=== PATIENT | male | born 1985 | race Caucasian/White ===

== ENCOUNTER 2022-02-25 18:40 | Inpatient (IN) | payer SELFPAY ==
[~2022-02-25] VITALS: Ht 177.8 cm; Wt 73.8 kg
[2022-02-25 19:06] LABS: BASO # 0.1 K/mm3 (0.0-0.2); BASO % 1.1 % (0.0-2.0); EOS % 0.2 % (0.0-4.0); GRAN # 2.8 K/mm3 (1.4-6.5); HEMATOCRIT 40.3 % (42.0-52.0); HEMOGLOBIN 14.3 g/dl (13.5-18.0); LYMPH # 1.4 K/mm3 (1.2-3.4); LYMPH % 30.5 % (20.0-51.0); MEAN CELL VOLUME 91 fl (80.0-100.0); MEAN CORPUSCULAR HEMOGLOBIN 32 pg (27-31); MEAN CORPUSCULAR HGB CONC 36 g/dl (33.0-37.0); MEAN PLATELET VOLUME 10.1 fl (7.4-10.4); MONO # 0.3 K/mm3 (0.1-0.6); MONO % 6.8 % (1.7-9.3); PLATELET COUNT 175 K/mm3 (130-400); RED BLOOD COUNT 4.45 M/mm3 (4.20-5.60); REDCELL DISTRIBUTION WIDTH-CV 13.1 % (11.5-14.5)
[2022-02-25 19:16] LABS: ALANINE AMINOTRANSFERASE 19 U/L (0-55); ALBUMIN 4.3 gm/dL (3.5-5.0); ALCOHOL(ethanol),MEDICAL 293 mg/dL (0-10); ALKALINE PHOSPHATASE 59 U/L (40-150); ANION GAP 28 mmol/L (7-16); AST,SGOT 31 U/L (5-34); BILIRUBIN,TOTAL 0.5 mg/dL (0.2-1.2); BLOOD UREA NITROGEN 11 mg/dL (9-21); CALCIUM 8.7 mg/dL (8.4-10.2); CHLORIDE 104 mmol/L (98-107); LIPASE 14 U/L (8-78); MAGNESIUM 1.9 mg/dL (1.6-2.6); POTASSIUM 3.5 mmol/L (3.5-4.5); SODIUM 143 mmol/L (136-145); TOTAL PROTEIN 7.8 gm/dL (6.2-8.1)
[2022-02-25 19:23] LABS: CARBON DIOXIDE 11 mmol/L (22-29); GLUCOSE 67 mg/dL (70-99)
[2022-02-25 19:24] LABS: TROPONIN-I < 0.010 ng/mL (0.00-0.033)
[2022-02-25 19:36] LABS: ACETONE,SERUM NEGATIVE
[2022-02-25 19:48] LABS: OSMOLALITY-SERUM 366 Osm/kg (275-300)
[2022-02-25 22:46] VITALS: BP 117/77; PULSE 68; TEMP 98.1
[2022-02-25 22:48] LABS: COLLECTION METHOD CLEAN CATCH
[2022-02-25 22:57] LABS: MUCOUS Present (NOT PRESENT); SQUAMOUS EPITHELIAL 0-2 /hpf (0-10); URINE BACTERIA None Seen /hpf (NONE SEEN); URINE RBC 0-2 /hpf (0-2)
[2022-02-25 22:58] LABS: PH 5 (5-8); URINE APPEARANCE Clear (CLEAR/HAZY); URINE BLOOD Negative (NEGATIVE); URINE COLOR Yellow (YELLOW); URINE GLUCOSE Negative (NEGATIVE); URINE KETONE 2+ (NEGATIVE); URINE NITRATE Negative (NEGATIVE); URINE PROTEIN(semi-quant) Negative (NEGATIVE); URINE UROBILINOGEN Negative (NEGATIVE)
[2022-02-25 23:03] LABS: TRICYCLIC ANTIDEPRESS URINE NEGATIVE
[2022-02-25] MEDS ORDERED: SEROQUEL 2525 MG/TAB PO (23:19)
[2022-02-25] MEDS ORDERED: BUSPAR10 MG PO (23:20)
[2022-02-25] MEDS ORDERED: ATARAX50 MG PO (23:21)
[2022-02-25] MEDS ORDERED: BLOOD PRESSURE MED (23:21)
[2022-02-25] MEDS ORDERED: GABAPENTIN (23:22)
[2022-02-25 23:47] VITALS: BP 118/67; PULSE 71; TEMP 97.6
[2022-02-26] VITALS (7 sets, daily range): BP systolic 102–141; BP diastolic 55–94; PULSE 54–91; TEMP 98.1–98.8
--- NOTE | 2022-02-26 01:47 | NUR ---
ARRIVAL TO FLOOR: PATIENT RESTING IN BED WITH COMPLAINTS OF NAUSEA AND REPORTS ANXIETY RETURNING. PATIENT COOPERATIVE WITH ADMISSION. PATIENT GIVEN ORDERED ZOFRAN AND ATIVAN PER CIWA SCALE. PATIENT SEEN BY PA AT BEDSIDE.
--- NOTE | 2022-02-26 06:10 | NUR ---
PATIENT RESTED QUIETLY FOR THE REMAINDER OF SHIFT. PATIENT RECEIEVED NO FURTHER MEDICATIONS.
[2022-02-26 08:45] LABS: BASO % 1.5 % (0.0-2.0); EOS # 0.1 K/mm3 (0.0-0.7); EOS % 1.9 % (0.0-4.0); GRAN # 1.2 K/mm3 (1.4-6.5); GRAN % 44.1 % (42.2-75.2); LYMPH % 39.5 % (20.0-51.0); MEAN CELL VOLUME 91 fl (80.0-100.0); MEAN CORPUSCULAR HGB CONC 35 g/dl (33.0-37.0); MEAN PLATELET VOLUME 10.1 fl (7.4-10.4); MONO # 0.3 K/mm3 (0.1-0.6); MONO % 12.6 % (1.7-9.3); PLATELET COUNT 119 K/mm3 (130-400); RED BLOOD COUNT 3.91 M/mm3 (4.20-5.60)
[2022-02-26 08:47] LABS: HEMATOCRIT 35.5 % (42.0-52.0); HEMOGLOBIN 12.3 g/dl (13.5-18.0); MEAN CORPUSCULAR HEMOGLOBIN 31 pg (27-31)
[2022-02-26 09:01] LABS: CALCIUM 7.9 mg/dL (8.4-10.2); CREATININE, serum 0.71 mg/dL (0.72-1.25); POTASSIUM 4.1 mmol/L (3.5-4.5)
--- NOTE | 2022-02-26 19:52 | NUR ---
BEGINNING OF SHIFT: PATIENT RESTING QUIETLY IN BED. PATIENT C/O HUNGER AND REQUESTS FOOD. PATIENT GIVEN BOXED LUNCH AND DENIES FURTHER NEEDS.
[2022-02-27] VITALS (7 sets, daily range): BP systolic 93–140; BP diastolic 53–614; PULSE 40–68; TEMP 97.4–98.3
--- NOTE | 2022-02-27 06:23 | NUR ---
END OF SHIFT: PATIENT SLEPT MOST OF SHIFT. PATIENT RECEIVED NO PRN MEDICATIONS.
[2022-02-27 06:51] LABS: CALCIUM 8.7 mg/dL (8.4-10.2); CREATININE, serum 0.66 mg/dL (0.72-1.25)
[2022-02-27 06:57] LABS: BASO % 0.9 % (0.0-2.0); EOS # 0.1 K/mm3 (0.0-0.7); EOS % 2.3 % (0.0-4.0); GRAN # 1.6 K/mm3 (1.4-6.5); GRAN % 45.3 % (42.2-75.2); HEMOGLOBIN 12.4 g/dl (13.5-18.0); LYMPH # 1.3 K/mm3 (1.2-3.4); LYMPH % 36.3 % (20.0-51.0); MEAN CELL VOLUME 94 fl (80.0-100.0); MEAN CORPUSCULAR HEMOGLOBIN 32 pg (27-31); MEAN CORPUSCULAR HGB CONC 34 g/dl (33.0-37.0); MEAN PLATELET VOLUME 10.9 fl (7.4-10.4); MONO # 0.5 K/mm3 (0.1-0.6); MONO % 14.9 % (1.7-9.3); PLATELET COUNT 119 K/mm3 (130-400); RED BLOOD COUNT 3.93 M/mm3 (4.20-5.60); REDCELL DISTRIBUTION WIDTH-CV 13.1 % (11.5-14.5)
[2022-02-27 06:59] LABS: HEMATOCRIT 36.8 % (42.0-52.0)
[2022-02-27] MEDS ORDERED: THIAMINE 1100 MG/TAB PO (10:59)
[2022-02-27] MEDS ORDERED: FOLIC ACID 11 MG/TA1 PO (10:59)
[2022-02-27] MEDS ORDERED: LIBRIUM 10M10 MG/CAP PO ×2 (11:03)
[2022-02-27] MEDS ORDERED: SEROQUEL 2525 MG/TAB PO (11:03)
--- NOTE | 2022-02-27 13:34 | NUR ---
Patient was provided with discharge information, all questions answered. Telemetry and IV access were discontinued.
--- NOTE | 2022-02-27 16:19 | NUR ---
Pulverizer Mill Operator met with patient for intake assessment/discharge planning: Patient presents alert and oriented; he is agreeable to speak to this Pulverizer Mill Operator. He is living in a house with a roommate that he has known since childhood, and he is independent in his ADLs and IADLs. He utilizes no DME, including no oxygen. His primary care physician is Dr. Joe Gillis in [place], [place], where he is from. He has continued to see this PCP, but ran out of prescribed mental health medications for anxiety and depression and his physician wants to see him again before refilling. He states his mother three years ago, and since he has been moving around the state. He is currently employed in [employer] and is obtaining BCBS there, but not yet established "It's been so busy there." He has a history of [place] Medicaid and attending [facility] substance use treatment for alcoholism. He felt this was helpful, but he is not seeking alcohol treatment at this time. He wants to re-establish with his PCP and get set up with local mental health; he is willing to consider a therapist as he notes he began to experience personal issues regarding family that exacerbated his recent alcohol use. He states, "I just haven't been taking good care of myself," and he notes he hasn't been eating and his roommate has commented. His stomach has been bothering him and he has no appetite lately. He states he has been depressed for as long as he can remember. "I think alot...I'm a worrier." He admits that he was likely self-medication for mental health with his recent substance use that resulted in this hospitalization. Patient is agreeable to referred appointment to [facility] for mental health intake on 03/17/22 at 09:00, and he accepts handouts with alternative options for mental health and various local substance use disorder treatment services, should he decide to attend. He also accepts a patient financial application. He requests a work note, but otherwise has no other questions or concerns. He plans to return to home today and do laundry and prepare to return to work. Alisson, associate of science in nursing contacts Carley DUNCAN who informed would prepare patient's work note for his discharge. Blaise REDMOND updated. *Discharge plan: to home*
== END 2022-02-27 13:00 | disposition home or self-care (01) | DRG 897 ==
LOC: COL.ER 18:40 → MEDICAL 21:10
PROVIDERS: Emergency Medicine; Physician Assistant; ADMIT Student in an Organized Health Care Education/Training Program
DX: F10.139 Alcohol abuse with withdrawal, unspecified (principal); E87.2 Acidosis; K27.9 Peptic ulcer, site unspecified, unspecified as acute or chronic, without hemorrhage or perforation; F41.9 Anxiety disorder, unspecified; Z20.822 Contact with and (suspected) exposure to COVID-19; E16.2 Hypoglycemia, unspecified; F32.A Depression, unspecified; Y90.8 Blood alcohol level of 240 mg/100 ml or more; F12.90 Cannabis use, unspecified, uncomplicated; H53.8 Other visual disturbances; R10.9 Unspecified abdominal pain; G40.909 Epilepsy, unspecified, not intractable, without status epilepticus; D64.9 Anemia, unspecified; Z87.19 Personal history of other diseases of the digestive system; Z91.81 History of falling
CPT/HCPCS: 99222-AI; 99232-AI; 99239; C9113; J1650; J2060; J2405; J2560; J3411; J3480; J7030; J7120

== ENCOUNTER 2022-04-03 12:54 | Emergency (ER) | payer SELFPAY ==
[~2022-04-03] VITALS: Ht 177.8 cm; Wt 75.0 kg
[~2022-04-03 12:54] MED LIST: ATARAX50 MG PO; BLOOD PRESSURE MED; BUSPAR10 MG PO; FOLIC ACID 11 MG/TA1 PO; GABAPENTIN; LIBRIUM 10M10 MG/CAP PO; SEROQUEL 2525 MG/TAB PO; THIAMINE 1100 MG/TAB PO
[2022-04-03 13:16] VITALS: TEMP 98
[2022-04-03 13:46] LABS: BASO # 0.1 K/mm3 (0.0-0.2); BASO % 0.9 % (0.0-2.0); EOS % 0.4 % (0.0-4.0); GRAN # 3.9 K/mm3 (1.4-6.5); GRAN % 71.2 % (42.2-75.2); HEMATOCRIT 43.3 % (42.0-52.0); HEMOGLOBIN 14.8 g/dl (13.5-18.0); LYMPH # 1.1 K/mm3 (1.2-3.4); LYMPH % 19.5 % (20.0-51.0); MEAN CELL VOLUME 92 fl (80.0-100.0); MEAN CORPUSCULAR HEMOGLOBIN 32 pg (27-31); MEAN CORPUSCULAR HGB CONC 34 g/dl (33.0-37.0); MONO # 0.4 K/mm3 (0.1-0.6); MONO % 7.6 % (1.7-9.3); PLATELET COUNT 158 K/mm3 (130-400); REDCELL DISTRIBUTION WIDTH-CV 12.3 % (11.5-14.5)
[2022-04-03 14:06] LABS: ALBUMIN 4.4 gm/dL (3.5-5.0); BILIRUBIN,TOTAL 0.7 mg/dL (0.2-1.2); CALCIUM 9.1 mg/dL (8.4-10.2); CREATININE, serum 0.8 mg/dL (0.72-1.25); POTASSIUM 3.4 mmol/L (3.5-4.5); TOTAL PROTEIN 7.8 gm/dL (6.2-8.1)
[2022-04-03 14:55] VITALS: BP 147/97; PULSE 79
[2022-04-03 14:55] LABS: COLLECTION METHOD CLEAN CATCH
[2022-04-03 15:03] LABS: PH 5.5 (5.0-8.5); URINE APPEARANCE Clear (CLEAR/HAZY); URINE BLOOD Negative (NEGATIVE); URINE COLOR Yellow (YELLOW); URINE GLUCOSE Negative (NEGATIVE); URINE KETONE 3+ (NEGATIVE); URINE NITRATE Negative (NEGATIVE); URINE PROTEIN(semi-quant) Negative (NEGATIVE); URINE UROBILINOGEN 0.2 E.U/dL (0.2-1.0)
[2022-04-03 15:06] LABS: MUCOUS Present (NOT PRESENT); SQUAMOUS EPITHELIAL None Seen /hpf (0-10); URINE BACTERIA None Seen /hpf (NONE SEEN); URINE RBC 0-2 /hpf (0-2)
[2022-04-03 15:17] LABS: TRICYCLIC ANTIDEPRESS URINE NEGATIVE
== END 2022-04-03 17:00 | disposition home or self-care (01) ==
LOC: COL.ER 12:54
PROVIDERS: Physician Assistant
DX: F10.10 Alcohol abuse, uncomplicated (principal); Z20.822 Contact with and (suspected) exposure to COVID-19; Z28.310 Unvaccinated for COVID-19
CPT/HCPCS: J7030

== ENCOUNTER 2022-04-05 16:18 | Inpatient (IN) | payer SELFPAY ==
[~2022-04-05] VITALS: Ht 177.8 cm; Wt 80.0 kg
[2022-04-05 17:01] LABS: HEMOGLOBIN 15.6 g/dl (13.5-18.0); MEAN CELL VOLUME 90 fl (80.0-100.0); MEAN CORPUSCULAR HEMOGLOBIN 31 pg (27-31); MEAN CORPUSCULAR HGB CONC 35 g/dl (33.0-37.0); MEAN PLATELET VOLUME 10.3 fl (7.4-10.4); PLATELET COUNT 153 K/mm3 (130-400); RED BLOOD COUNT 4.99 M/mm3 (4.20-5.60); REDCELL DISTRIBUTION WIDTH-CV 12.3 % (11.5-14.5)
[2022-04-05 17:19] LABS: ALANINE AMINOTRANSFERASE 19 U/L (0-55); ALBUMIN 4.3 gm/dL (3.5-5.0); ALKALINE PHOSPHATASE 64 U/L (40-150); ANION GAP 16 mmol/L (7-16); AST,SGOT 31 U/L (5-34); BILIRUBIN,TOTAL 0.5 mg/dL (0.2-1.2); BLOOD UREA NITROGEN 9 mg/dL (9-21); CALCIUM 9.8 mg/dL (8.4-10.2); CARBON DIOXIDE 26 mmol/L (22-29); CHLORIDE 104 mmol/L (98-107); CREATININE, serum 0.86 mg/dL (0.72-1.25); GLUCOSE 115 mg/dL (70-99); LIPASE 22 U/L (8-78); POTASSIUM 3.6 mmol/L (3.5-4.5); SODIUM 146 mmol/L (136-145)
[2022-04-05 17:22] LABS: ACETAMINOPHEN < 1.0 ug/mL (10-30); SALICYLATE < 5.0 mg/dL (15.0-30.0)
[2022-04-05 17:23] LABS: ALCOHOL(ethanol),MEDICAL 496 mg/dL (0-10)
[2022-04-05 17:37] LABS: BAND 2 % (0-10); LYMPHOCYTE 50 % (20.0-51.0); NEUTROPHILS 25 % (42.0-75.2); PLATELET ESTIMATE NORMAL (NORMAL)
[2022-04-05] MEDS ORDERED: ATIVAN 1MG T1 MG/TAB PO (21:32)
[2022-04-05] MEDS ORDERED: PROZAC40 MG PO (21:32)
[2022-04-05] MEDS ORDERED: SEROQUEL50 MG PO (21:32)
[2022-04-05] MEDS ORDERED: LIBRIUM 10M10 MG/CAP PO (22:24)
[2022-04-05] MEDS ORDERED: PRILOTC PO (22:25)
[2022-04-05 22:26] VITALS: BP 137/85; PULSE 65; TEMP 97.8
[2022-04-05] MEDS ORDERED: ZOFRAN 4MG T4 MG/TAB PO (22:26)
--- NOTE | 2022-04-05 23:00 | NUR ---
Patient arrived to medical unit from ER at approximately 2210. During addmission intake, patient answers yes to suicide questions quietly. Not answering what plan is, but states he is here at the hospital due to these suicidal thoughts. Updated PERLA Tavarez. Patient has staff member assigned one:one for suicide precautions.
--- NOTE | 2022-04-05 23:05 | NUR ---
This nurse receives report from charge nurse NYLA Schmidt at bedside. Patient is resting in bed with eyes closed. Patient briefly arouses to pull covers up on himself; this nurse requests patient put on a andersen gown. Patient state "not right now, if that's cool." This nurse assists patient pulling covers over patient's body and states we can wait to change gowns until he needs to use restroom. Patient states understanding. This nurses sits outside patients room with a clear view to patient. Patient remains calm and resting with hat pulled over his eyes. Patient shows no signs or symptoms of withdrawal at this time.
[2022-04-05 23:42] LABS: TRICYCLIC ANTIDEPRESS URINE NEGATIVE
[2022-04-06] VITALS (12 sets, daily range): BP systolic 98–139; BP diastolic 64–90; PULSE 52–91; TEMP 97.6–98.7
--- NOTE | 2022-04-06 01:44 | NUR ---
0120 - Patient begins vomitting. This nurse obtained a basin and cold wash cloth for patient. Patient finished with vomitting states "This is how my withdrawals start." Zofran admistered per eMAR. 0130 - This nurse performs 0200 withdrawal assessment. Patient is having visible tremors. Patient has noticeable beads of persperation on forehead. Patient states his anxiety is 8/10. Patient denies visual and auditory hallicinations. 0138 - Ativan administered per eMAR. 0148 - Patient is resting in bed with eyes closed, This nurse remains in direct eyesight of patient.
--- NOTE | 2022-04-06 06:08 | NUR ---
PATIENT HAS HAD AN UNEVENTFUL NIGHT. PATIENT LAYING IN BED WITH EYES CLOSED AND REMAINS IN DIRECT SIGHT OF THIS NURSE. PATIENT HAS HAD EMESIS X 2 THIS SHIFT. SCORING 4 ON WITHDRAWALS. PATIENT AWAKENS EASILY WITH VERBAL COMMUNICATION. VITALS HAVE REMAINED WNL. PATIENT DENIES PAIN, TREMORS ARE VERY MILD, PALMS SLIGHTLY MOIST. PATIENT DENIES SUICIDAL IDEATION AT THIS TIME. PATIENT DENIES NEEDS WHEN ASKED BUT STATES APPRECIATION FOR CARE.
[2022-04-06 06:38] LABS: BASO % 0.4 % (0.0-2.0); EOS # 0.1 K/mm3 (0.0-0.7); EOS % 1.3 % (0.0-4.0); GRAN % 44.9 % (42.2-75.2); HEMATOCRIT 38.7 % (42.0-52.0); LYMPH # 2.1 K/mm3 (1.2-3.4); LYMPH % 46.7 % (20.0-51.0); MEAN CELL VOLUME 92 fl (80.0-100.0); MEAN CORPUSCULAR HEMOGLOBIN 32 pg (27-31); MEAN CORPUSCULAR HGB CONC 34 g/dl (33.0-37.0); MEAN PLATELET VOLUME 10.4 fl (7.4-10.4); MONO # 0.3 K/mm3 (0.1-0.6); MONO % 6.5 % (1.7-9.3); PLATELET COUNT 124 K/mm3 (130-400); REDCELL DISTRIBUTION WIDTH-CV 12.3 % (11.5-14.5)
[2022-04-06 06:52] LABS: CALCIUM 7.7 mg/dL (8.4-10.2); CREATININE, serum 0.71 mg/dL (0.72-1.25); POTASSIUM 3.7 mmol/L (3.5-4.5)
[2022-04-06 06:54] LABS: HEMOGLOBIN 13.3 g/dl (13.5-18.0)
--- NOTE | 2022-04-06 07:09 | NUR ---
PT SLEEPING AT THE TIME OF THE REPORT.
--- NOTE | 2022-04-06 09:34 | NUR ---
patient alert and orient x4, vs stable, raised c/o epigastrict pain,nausea low appetite, prescribed medications given, all well tolarated. pt was able to eat some breakfast.
--- NOTE | 2022-04-06 13:45 | NUR ---
Brewery Cellar Worker rounds: Patient was emotional; tearful. Patient acknowledges that his hospital stay is due to an alcohol binge. Mother had from Stacy Gerhrigs' disease. This week was the anniversary of her . He had been 8-months sober. Now he is regretting losing his sobriety. Patient's brother is helping him find psychiatric care for when he is released from the hospital. Patient is welcoming to daily refrigerator tester visits during his hospital stay. Brewery Cellar Worker prayed for Patient.
--- NOTE | 2022-04-06 14:35 | NUR ---
PT IS AWAKE AND ALERT, VSS, HAS A VISITOR IN THE ROOM. PT LOOKS CALM AND AT EASE, DENIES COMPLAINTS.
--- NOTE | 2022-04-06 18:25 | NUR ---
PT HAD UNEVENTFUL DAY, VS STABLE, ALERT AND ORIENT X4, HAD CPMPLAINTS OF EPIGASTRIC PAIN, CHILLS, NAUSEA AND NOTABLE TREMORS THROUGHOUT THE DAY , DUE PRESCRIBED MEDICATION GIVEN ALL WEEL TOLARATED.
--- NOTE | 2022-04-06 20:00 | NUR ---
Pt sleeping but easily arousable to verbal commands. A&O x4. VSS. Shift assessment completed. Pt diaphoretic at the time of assessment. Ciwa score of 5. Pt doesn't verbalize any needs or concerns at this moment. Seizure precautions remain in place. Pt no longer in suicidal watch. Call light within reach.
[2022-04-07] VITALS (12 sets, daily range): BP systolic 111–144; BP diastolic 71–91; PULSE 49–70; TEMP 97.7–98.9
[2022-04-07 06:23] LABS: BASO % 0.5 % (0.0-2.0); EOS # 0.1 K/mm3 (0.0-0.7); EOS % 2.9 % (0.0-4.0); GRAN # 1.8 K/mm3 (1.4-6.5); GRAN % 48.2 % (42.2-75.2); HEMOGLOBIN 12.8 g/dl (13.5-18.0); LYMPH # 1.4 K/mm3 (1.2-3.4); LYMPH % 37.4 % (20.0-51.0); MEAN CELL VOLUME 91 fl (80.0-100.0); MEAN CORPUSCULAR HEMOGLOBIN 32 pg (27-31); MEAN CORPUSCULAR HGB CONC 35 g/dl (33.0-37.0); MEAN PLATELET VOLUME 10.3 fl (7.4-10.4); MONO # 0.4 K/mm3 (0.1-0.6); MONO % 10.7 % (1.7-9.3); PLATELET COUNT 91 K/mm3 (130-400); RED BLOOD COUNT 4.05 M/mm3 (4.20-5.60); REDCELL DISTRIBUTION WIDTH-CV 11.8 % (11.5-14.5)
[2022-04-07 06:29] LABS: CALCIUM 8.2 mg/dL (8.4-10.2); CREATININE, serum 0.72 mg/dL (0.72-1.25); POTASSIUM 4.1 mmol/L (3.5-4.5)
--- NOTE | 2022-04-07 18:05 | NUR ---
PT HAD A CALM DAY, VSS, ORIENT AND ALERTX 4, DUE MEDICATION GIVEN PRESCRIBED No adverse effects noted. raised complaints of epigastric pain which later improved with medications.
[2022-04-07 18:17] LABS: HEMATOCRIT 36.4 % (42.0-52.0)
--- NOTE | 2022-04-07 19:26 | NUR ---
PATIENT SITTING IN ROOM IN DARK TALKING ON CELL PHONE. PATIENT ENDS CALL TO SAY HI TO THIS NURSE. PATIENT DENIES ANY PAIN, NEEDS OR CONCERNS AT THIS TIME. PATIENT DOES STATE HE HAS HAD VISIUAL DISTURBANCES TODAY MORE SO THAN ANY OTHER DAY, AND THAT PATIENT HAD ATIVAN AT 1830. PATIENT HAS CALL LIGHT WITHIN REACH AND IS ENCOURAGED TO CALL WITH ANY NEEDS OR CONCERNS.
[2022-04-08] VITALS (11 sets, daily range): BP systolic 103–149; BP diastolic 63–97; PULSE 50–75; TEMP 97.3–98.3
[2022-04-08 06:10] LABS: BASO % 0.5 % (0.0-2.0); EOS # 0.1 K/mm3 (0.0-0.7); EOS % 3.2 % (0.0-4.0); GRAN # 1.9 K/mm3 (1.4-6.5); GRAN % 46.2 % (42.2-75.2); HEMATOCRIT 37.5 % (42.0-52.0); HEMOGLOBIN 13.1 g/dl (13.5-18.0); LYMPH # 1.7 K/mm3 (1.2-3.4); LYMPH % 40.4 % (20.0-51.0); MEAN CELL VOLUME 90 fl (80.0-100.0); MEAN CORPUSCULAR HEMOGLOBIN 31 pg (27-31); MEAN CORPUSCULAR HGB CONC 35 g/dl (33.0-37.0); MEAN PLATELET VOLUME 11.2 fl (7.4-10.4); MONO # 0.4 K/mm3 (0.1-0.6); MONO % 9.5 % (1.7-9.3); PLATELET COUNT 95 K/mm3 (130-400); RED BLOOD COUNT 4.18 M/mm3 (4.20-5.60); REDCELL DISTRIBUTION WIDTH-CV 11.7 % (11.5-14.5)
[2022-04-08 06:24] LABS: CALCIUM 8.9 mg/dL (8.4-10.2); CREATININE, serum 0.75 mg/dL (0.72-1.25); POTASSIUM 3.6 mmol/L (3.5-4.5)
--- NOTE | 2022-04-08 06:24 | NUR ---
THIS NURSE WILL REQUEST DAY SHIFT TO REQUEST TO GET PATIENT ATIVAN CHANGED TO PO THIS DATE. HE IS REMAINING UNDER A 4 LAST TWO EVALUATIONS AND IT HAS BEEN 48 HOURS OF IV ATIVAN. PATIENT WILL HOLD HANDS OUT AND SHAKE BUT WHEN NURSE RETURNS WITH ATIVAN HOLDS HIS HAND AND ARM UP WITH NO TREMORS BEFORE ATIVAN IS ADMINISTERED. PATIENT REQUESTED A TURKEY SANDWHICH AFTER EATING ALL HIS DINNER AND HE COMPLETED THE TURKEY SANDWHICH BOX WELL. PATIENT IS STATING HE IS CURIOUS ABOUT FINDING MORE OF A MENTAL HEALTH INPATIENT PROGRAM THAN DRUG REHAB.
--- NOTE | 2022-04-08 08:37 | NUR ---
Patient is resting in bed, alert and oriented x 4, VSS. States some nausea, PRN provided. His breakfast tray just arrived, eating well. Assessment completed, meds provided. No other needs at this time, call light within reach.
--- NOTE | 2022-04-08 15:52 | NUR ---
Front Desk Assistant met with patient to discuss discharge planning. Patient lives in [place] with his "stevenson" and advised he sees the new doctor at [facility]. Patient spoke quietly during intake and was at times difficult to hear. Patient advised his dad, Adonis Garcia (ph#[phone]) is his emergency contact and lives in [place], [place]. Patient advised he has been employed for almost 90 days now, however SW could not understand him when he stated his employer. Patient advised in a couple weeks he should qualify to have insurance through his employer, but for the meantime is self pay. SW asked patient is he had Advance Directives and he did not. Patient is not interested in completing DPOA-HC at this time. SW provided Mental Health and Drug/Alcohol Resources. SW pointed out [facility] and advised patient this was a pathway to services for those who are uninsured. SW collaborated with Hospitalist who advised patient will need [facility] Screen prior to discharge. Hospitalist felt patient may be medically cleared by tomorrow. Discharge Plan: Home, pending [facility] Screen
--- NOTE | 2022-04-08 18:47 | NUR ---
Patient has been stable along the day. VSS. Tolearating eating. PRN provided as needed. Had a shower today. No other isses. Report given to camila RN.
--- NOTE | 2022-04-08 22:06 | NUR ---
Patient assessed around 1999. Alert and oriented, and able to make needs known. Scored 5 on detox protocol, and given PRN Ativan per orders. Denies pain and discomfort. Reports eatting better today. Patient voices no questions, needs, or concerns at this time. In bed with call light within reach.
[2022-04-09 00:17] VITALS: BP 128/84; PULSE 61; TEMP 97.6
[2022-04-09 03:38] VITALS: BP 129/81; PULSE 57; TEMP 97.7
--- NOTE | 2022-04-09 05:48 | NUR ---
Patient given PRN Ativan during the night per detox protocol. Given PRN Zofran as requested during the night. Voices no questions, needs, or concerns at this time. In bed with call light within reach.
[2022-04-09 05:54] VITALS: BP 138/90; PULSE 57
[2022-04-09 07:06] LABS: BASO % 0.4 % (0.0-2.0); EOS # 0.2 K/mm3 (0.0-0.7); EOS % 3.6 % (0.0-4.0); GRAN # 2.2 K/mm3 (1.4-6.5); GRAN % 48.6 % (42.2-75.2); HEMATOCRIT 38.8 % (42.0-52.0); HEMOGLOBIN 13.4 g/dl (13.5-18.0); LYMPH # 1.6 K/mm3 (1.2-3.4); LYMPH % 35.6 % (20.0-51.0); MEAN CELL VOLUME 90 fl (80.0-100.0); MEAN CORPUSCULAR HEMOGLOBIN 31 pg (27-31); MEAN CORPUSCULAR HGB CONC 35 g/dl (33.0-37.0); MEAN PLATELET VOLUME 11.4 fl (7.4-10.4); MONO # 0.5 K/mm3 (0.1-0.6); MONO % 11.6 % (1.7-9.3); PLATELET COUNT 97 K/mm3 (130-400); RED BLOOD COUNT 4.29 M/mm3 (4.20-5.60); REDCELL DISTRIBUTION WIDTH-CV 11.8 % (11.5-14.5)
[2022-04-09 07:19] LABS: CALCIUM 9.4 mg/dL (8.4-10.2); CREATININE, serum 0.79 mg/dL (0.72-1.25); POTASSIUM 3.5 mmol/L (3.5-4.5)
[2022-04-09 08:05] VITALS: BP 132/95; PULSE 56; TEMP 97.6
[2022-04-09 10:06] VITALS: BP 135/89; PULSE 92; TEMP 97.8
--- NOTE | 2022-04-09 10:45 | NUR ---
PATENT THOUGHT HE WAS LEAVIGN AND PACKED. PATIENT EDUCATED ON REASON HE IS NOT BEIONG DISCHARGED TODAY.
--- NOTE | 2022-04-09 11:45 | NUR ---
PATIENT AGAIN EDUCATED ON REASONING WHY HE CAN NOT DISCHARGE AT THIS TIME. STATED HE WANTED TO PULL OUT HIS IV MULTIPLE TIMES AND LEAVE. EDUCATED HIM AGAIN ON PROS TO STAYING AND RECIEVING TREATMENT. PATIENT STATED HE WANTS TO LEAVE AND US TO GIVE HIM HIS PRESCRIPTIONS. MD AWARE AND STATED PATIENT CAN SIGN OUT AMA BUT WE WILL NOT BE GIVING HIS HOME MEDS TO GO, SINCE HE IS NOT MEDICALLY CLEARED FOR DISCHARGE. PATIENT INFORMED OF THIS, AND NO LONGER WANTED TO SPEAK TO ME, HE ASKED TO SPEAK TO THE PHYSICIAN . MD AWARE.
[2022-04-09 11:51] VITALS: BP 125/76; PULSE 73; TEMP 98.2
--- NOTE | 2022-04-09 12:47 | NUR ---
NYLA PEREZ CALLED ME TO INFORM ME MY PATIENT WALKED OUT AMA, AND REFUSED TO SIGN THE AMA FORM. PATIENT PULLED OUT HIS IV. IV IS IN THE TRASH CAN. SHE STATED SHE WALKED HIM OUT. MD BLANCA
--- NOTE | 2022-04-09 12:59 | NUR ---
SECURITY AWARE PATIENT WAS ONLY WALKED TO ELEVATOR BY ANOTHER RN. GAVE DISCRIPTION OF PATIENT WAS LAST SEEN WEARING AND POSSIBLE OTHER CLOTHES.
--- NOTE | 2022-04-09 14:41 | NUR ---
Patient left AMA.
== END 2022-04-09 12:45 | disposition left against medical advice (07) | DRG 894 ==
LOC: COL.ER 16:18 → MEDICAL 20:01
PROVIDERS: Nurse Practitioner; Physician Assistant; Student in an Organized Health Care Education/Training Program; ADMIT Student in an Organized Health Care Education/Training Program
DX: F10.129 Alcohol abuse with intoxication, unspecified (principal); F32.A Depression, unspecified; F17.210 Nicotine dependence, cigarettes, uncomplicated; F12.90 Cannabis use, unspecified, uncomplicated; Y90.8 Blood alcohol level of 240 mg/100 ml or more; R45.84 Anhedonia; F41.1 Generalized anxiety disorder; F19.14 Other psychoactive substance abuse with psychoactive substance-induced mood disorder; F10.139 Alcohol abuse with withdrawal, unspecified; Z87.19 Personal history of other diseases of the digestive system; Z53.29 Procedure and treatment not carried out because of patient's decision for other reasons
CPT/HCPCS: OP; C9113; G0378; J1650; J2060; J2270; J2405; J3411; J3480; J7030